=== PATIENT | female | born 1950 | race Caucasian/White ===

== ENCOUNTER 2020-05-08 09:25 | Day surgery (SDC) | payer OTHER ==
[2020-05-02 14:34] LABS: BASOPHIL % 0.9 % (0-2); PLATELET COUNT 222 x10^3mcL (130-400)
[2020-05-02 14:47] LABS: RED CELL DISTRIBUTION WIDTH 15.3 % (11.5-14.5)
[2020-05-02 15:07] LABS: BILIRUBIN TOTAL 0.34 mg/dL (0.20-1.00); CALCIUM 9.1 mg/dL (8.5-10.1); CARBON DIOXIDE 35.2 mmol/L (21-32); CREATININE SERUM 3.8 mg/dL (0.6-1.0); POTASSIUM SERUM 4.7 mmol/L (3.5-5.1); TOTAL PROTEIN, SERUM 7.2 g/dL (6.4-8.2)
[2020-05-02 15:08] LABS: ALBUMIN 2.8 g/dL (3.4-5.0)
--- NOTE | 2020-05-06 18:00 | NUR ---
COPIES OF PREOP TEST RESULTS FAXED TO DR YORK AND COPIES TO OR FOR ANESTHESIA TO REVIEW.
--- NOTE | 2020-05-07 07:23 | NUR ---
PER ANESTHESIA TO PERFORM ACCUCHECK UPON ARRIVAL TO PREOP.
[~2020-05-08] VITALS: Ht 160 cm; Wt 81.6 kg
[2020-05-08 10:03] VITALS: BP 151/60
[2020-05-08 11:19] LABS: CALCIUM 9.3 mg/dL (8.5-10.1); CARBON DIOXIDE 32.2 mmol/L (21-32); POTASSIUM SERUM 4.9 mmol/L (3.5-5.1)
[2020-05-08 11:23] LABS: CREATININE SERUM 5.4 mg/dL (0.6-1.0)
[2020-05-08 15:12] VITALS: BP 145/67
== END 2020-05-08 15:00 | disposition home or self-care (01) ==
LOC: DS 09:25 → OR 11:30 → DS 15:00
PROVIDERS: Anesthesiology; ATTEND Surgery
DX: E11.22 Type 2 diabetes mellitus with diabetic chronic kidney disease (principal); I13.2 Hypertensive heart and chronic kidney disease with heart failure and with stage 5 chronic kidney disease, or end stage renal disease; I50.9 Heart failure, unspecified; N18.6 End stage renal disease; I42.9 Cardiomyopathy, unspecified; I48.0 Paroxysmal atrial fibrillation; E11.40 Type 2 diabetes mellitus with diabetic neuropathy, unspecified; Z99.2 Dependence on renal dialysis; Z11.59 Encounter for screening for other viral diseases; Z79.4 Long term (current) use of insulin; Z79.899 Other long term (current) drug therapy
CPT/HCPCS: J0690; J2250; J3010; J3490; U0003-CS